=== PATIENT | female | born 1985 | race Caucasian/White ===

== ENCOUNTER 2023-12-23 09:08 | Emergency (ER) | payer OTHER ==
[2023-12-23] MEDS ORDERED: Sulfamethoxazole/Trimethoprim 800-160 MG Tab ONE (10:00)
[2023-12-23 10:34] LABS: HEMATOCRIT 39.5 % (37.0-47.0); HEMOGLOBIN 13.2 g/dL (11.5-16.5); MEAN CORPUSCULAR HEMOGLOBIN 28.8 pg (27.0-32.0); MEAN CORPUSCULAR HGB CONC 33.4 g/dL (31.0-35.0); MEAN PLATELET VOLUME 10.9 fL (6.0-10.0); RED BLOOD CELL COUNT 4.58 M/uL (3.80-5.80); RED CELL DISTRIBUTION WIDTH 13.9 % (11.0-16.0); WHITE BLOOD CELL COUNT,WBC 12.2 K/uL (4.0-11.0)
[2023-12-23 10:35] LABS: APPEARANCE,URINE CLOUDY (CLEAR); BILIRUBIN,URINE NEGATIVE (NEGATIVE); COLOR,URINE YELLOW; GLUCOSE,URINE NEGATIVE (NEGATIVE); KETONES,URINE TRACE mg/dL (NEGATIVE); LEUKOCYTE ESTERASE,URINE SMALL (NEGATIVE); NITRITE,URINE POSITIVE (NEGATIVE); OCCULT BLOOD,URINE LARGE (NEGATIVE); PH,URINE 7.5 (5.0-8.0); PROTEIN,URINE >=300 mg/dL (NEGATIVE)
[2023-12-23 10:47] LABS: BACTERIA,URINE MANY /HPF; RBC,URINE 20-30 /HPF; SQUAMOUS EPITHELIAL CELLS,UR FEW /HPF; WBC,URINE 50-75 /HPF
[2023-12-23 10:52] LABS: ALBUMIN 3.8 g/dL (3.4-5.0); ANION GAP 11.6 mmol/L (5.0-15.0); BILIRUBIN TOTAL 0.9 mg/dL (0.0-1.0); BUN/CREATININE RATIO 13.4 (6-25); CALCIUM 8.8 mg/dL (8.5-10.1); CARBON DIOXIDE,CO2 28.3 mmol/L (21.0-32.0); CREATININE 0.67 mg/dL (0.55-1.02); EST CRCL DRUG DOSING (CG) 99.27 mL/min; POTASSIUM,K 3.9 mmol/L (3.5-5.1); PROTEIN TOTAL,TP 7.7 g/dL (6.4-8.2)
[2023-12-23] MEDS: Sodium Chloride 0.9% 1,000 ML IV SCH (12:00)
[2023-12-23] MEDS: Iopamidol 612 MG/ML 100 ML Bottle IV SCH (12:27)
[2023-12-23] MEDS: Sodium Chloride 0.9% 50 ML IV ONE (12:27)
[2023-12-23] MEDS: Sodium Chloride 0.9% 10 ML Syringe FLUSH ONE (12:27)
== END 2023-12-23 13:30 | disposition home or self-care (01) ==
LOC: LB.ED 09:08
DX: N39.0 Urinary tract infection, site not specified (principal); Z88.8 Allergy status to other drugs, medicaments and biological substances
CPT/HCPCS: 36415; 74177; 80053; 81001; 85027; 87086; 99284; A9270-GY; J3490; J7030; Q9967

== ENCOUNTER 2025-05-24 17:52 | Emergency (ER) | payer OTHER | END 2025-05-24 18:20 | disposition home or self-care (01) | LOC: LB.ED 17:52 | DX: S90.121A Contusion of right lesser toe(s) without damage to nail, initial encounter (principal); Z88.6 Allergy status to analgesic agent; Z91.048 Other nonmedicinal substance allergy status; V80.010A Animal-rider injured by fall from or being thrown from horse in noncollision accident, initial encounter | CPT/HCPCS: 99283 ==